=== PATIENT | female | born 1985 | race Caucasian/White ===

== ENCOUNTER 2023-07-13 09:46 | Emergency (ER) | payer OTHER, SELFPAY ==
[2023-07-13 09:59] VITALS: BP 133/76
[2023-07-13 10:26] LABS: Urine Albumin Trace (Neg - Trace); Urine Bilirubin 1+ (Negative); Urine Character Clear (Clear); Urine Color Yellow; Urine Glucose Negative (Negative); Urine Ketone 3+ (Negative); Urine Leukocyte Negative (Negative); Urine Nitrite Negative (Negative); Urine Occult Blood 3+ (Negative); Urine Urobilinogen Negative (Neg - 1+)
[2023-07-13 10:41] LABS: Urine Bacteria Few (Negative); Urine Squamous Cell 16-20 /LPF (Few); Urine White Cell 0-2 /HPF (0-5)
[2023-07-13 11:14] VITALS: BMI 22.5
[2023-07-13 11:15] VITALS: BP 115/75
--- NOTE | 2023-07-13 11:22 | ED.GENMED ---
History of Present Illness
General
Chief Complaint: Abdominal Pain
Time Seen by Provider: 07/13/23 11:01
Travel History
Have you had any contact with someone who has COVID-19?: No
Do you have any symptoms of coronavirus? Fever > 100 degrees, chills, cough, shortness of breath, sore throat, loss of taste or smell, muscle aches, or headache?: No
History of Present Illness
History of Present Illness:
37-year-old female presents to the emergency department for evaluation of left-sided lower abdominal pain gradually worsening over the past 2 days. Pain is colicky in nature, currently rated 6 out of 10. Also reporting low back pain and low-grade
fever this morning. Does report nausea with no vomiting, did have an episode of diarrhea this morning. No lower urinary tract voiding symptoms. No history of intra-abdominal surgeries.
Review of Systems
Review of Systems
Allergies reviewed?: Yes
All Other Systems: ROS reviewed and negative except as documented in HPI and ROS
Phy Exam
Physical Exam
Physical Exam:
GEN: Well appearing, NAD, WDWN
Eyes: PERRLA, EOMs intact, no scleral icterus
HENT: NCAT, oral mucosa moist
Lungs: CTAB, no wheezes, rales, rhonchi, normal chest wall excursion
Cardiac: RRR, no M/R/G, no peripheral edema. Radial pulses 2+ bilat
Abdomen: Soft, no rigidity, moderate tenderness to the suprapubic region and left lower quadrant
Neuro: AO x 3
MSK: No gross deformity or ecchymosis. No edema. No digital clubbing
Skin: No rashes, petechiae. Normal color, no pallor or jaundice.
Psych: Calm, cooperative, proper hygiene
Course
Orders/Labs/Results
Orders:
Orders
07/13/23 10:16
Urinalysis Reflex To Culture Urgent
Date Specimen was Collected: 07/13/23
Time Specimen was Collected: 10:09
Urine Microscopic Reflex Cult Urgent
07/13/23 11:22
CT Abd/Pel (IV only)-DH only Urgent
Comment:
Reason For Exam: LLQ pain
Ketorolac [Toradol] 15 mg IV NOW STA
Test Result ONCE
07/13/23 11:39
Complete Blood Count/With Diff Urgent
Comprehensive Metabolic Panel Urgent
HCG, Serum Qualitative Screen Urgent
Abnormal Lab Results
07/13/23 07/13/23
10:16 11:39
RBC 4.04 L 10^6/uL
(4.20-5.40)
Hct 36.0 L %
(37.0-47.0)
MCH 31.7 H pg
(27.0-31.0)
MPV 10.5 H fL
(7.4-10.4)
Abs Immat Gran (auto) 0.1 H 10^3/uL
(0-0.05)
Absolute Neuts (auto) 7.9 H 10^3/uL
(1.4-6.5)
Neutrophils % 80.5 H %
(42.2-75.2)
Lymphocytes % 12.2 L %
(20.5-51.1)
Carbon Dioxide 21 L mmol/L
(22-30)
Urine Ketones 3+ A
(Negative)
Ur Occult Blood Reflex 3+ A
(Negative)
Urine Bilirubin 1+ A
(Negative)
Urine RBC 7-10 A /HPF
(0-2)
Urine Bacteria (Reflex) Few A
(Negative)
07/13/23 11:39
07/13/23 11:39
Vital Signs
Initial and Last Documented VS:
Initial Vital Signs
Temp Pulse BP Pulse Ox
100.1 F 84 133/76 99
07/13/23 09:59 07/13/23 09:59 07/13/23 09:59 07/13/23 09:59
Last Documented Vital Signs
Temp Pulse Resp BP Pulse Ox
100.1 F 70 18 103/75 100
07/13/23 09:59 07/13/23 13:22 07/13/23 13:22 07/13/23 13:22 07/13/23 13:22
MDM/Problems Addressed
MDM/Problems Addressed:
CT scan suggested diverticulitis. Urinalysis negative for UTI and clinical presentation is not concerning for appendicitis or acute surgical bowel pathology. Will start the patient on Augmentin and recommend strict clear liquid diet, recommend
outpatient GI follow-up. Counseled on high-fiber diet post completion of antibiotics and ED return parameters
*Critical Care Note
Total Time (30-74mins, 75-104mins- exclusive of procedures): Not Applicable
ED Attending Note
-
Portions of this chart may have been created with voice recognition software.� Occasional wrong word or��sound alike� substitutions may have occurred due to the inherent limitations of voice recognition software.
Discharge Plan
Departure
Patient Disposition: Home (Routine Discharge)
Date of Disposition: 07/13/23
Time of Disposition: 13:10
Patient with high blood pressure during this ER visit?: No
Discharge Problem:
Acute diverticulitis
Instructions: Clear Liquid Diet, Diverticulitis (DC)
Prescriptions:
New
amoxicillin-pot clavulanate 875-125 mg tablet
1 tab PO BID 10 Days Qty: 20 0RF
Referrals:
Kenia Lopez MD [Active] -
Malcolm Newell DO [Family Provider] -
Interventions
Interventions:
*Risk Screen - Suicide Last Done: 07/13/23 11:14
*General Assessment Last Done: 07/13/23 11:14
*Neglect/Abuse Screening Last Done: 07/13/23 11:14
ED- Fall Risk Assessment Last Done: 07/13/23 11:14
*Nursing Disposition Last Done: 07/13/23 13:23
YK-Xomvhb-Vzzffrmbcj Assessment Last Done: 07/13/23 11:14
Discharge Date and Time
Discharge Date/Time: 07/13/23 13:23
Print Language: OCCITAN
[2023-07-13] MEDS: TORADOL 15 MG IV (11:40)
[2023-07-13 12:02] LABS: HCG, Serum Qualitative Screen Negative
[2023-07-13 12:08] LABS: ALT (SGPT) 11 U/L (0-35); AST (SGOT) 22 U/L (14-36); Albumin 4.4 g/dl (3.5-5.0); Alkaline Phosphatase 69 U/L (38-126); Blood Urea Nitrogen 8 mg/dl (7-17); Calcium 9.5 mg/dl (8.4-10.2); Carbon Dioxide 21 mmol/L (22-30); Chloride 104 mmol/L (98-107); Estimated Creatinine Clearance 109 ml/min; Glucose 92 mg/dl (70-99); Potassium 3.6 mmol/L (3.5-5.1); Sodium 137 mmol/L (135-145); Total Bilirubin 0.8 mg/dl (0.2-1.3); Total Protein 7.1 g/dl (6.3-8.2); eGFR > 60.00
[2023-07-13 12:20] LABS: % Basophils 0.3 % (0-2); % Eosinophils 0.5 % (0-6); % Immature Granulocytes 0.5 % (0-0.5); % Lymphocytes 12.2 % (20.5-51.1); % Neutrophils 80.5 % (42.2-75.2); Absolute Eosinophils 0.1 10^3/uL (0-0.7); Absolute Immature Granulocytes 0.1 10^3/uL (0-0.05); Absolute Lymphocytes 1.2 10^3/uL (1.2-3.4); Absolute Monocytes 0.6 10^3/uL (0.1-0.6); Absolute Neutrophils 7.9 10^3/uL (1.4-6.5); Hemoglobin 12.8 g/dL (12.0-16.0); Mean Corp Hgb Conc. 35.6 g/dL (33.0-37.0); Mean Corpuscular Hgb 31.7 pg (27.0-31.0); Mean Corpuscular Volume 89.1 fL (81.0-99.0); Mean Platelet Volume 10.5 fL (7.4-10.4); Nucleated Red Blood Cells % 0 %; Platelet Count 200 10^3/uL (130-400); Red Blood Cell Count 4.04 10^6/uL (4.20-5.40); White Blood Cell Count 9.8 10^3/uL (4.8-10.8)
[2023-07-13 13:22] VITALS: BP 103/75
== END 2023-07-13 13:23 | disposition home or self-care (01) ==
LOC: EMR 09:46
PROVIDERS: Emergency Medicine; Physician Assistant; EMERGENCY PHYSICIAN Emergency Medicine; FAMILY PHYSICIAN Internal Medicine
DX: K57.32 Diverticulitis of large intestine without perforation or abscess without bleeding (principal); Z71.3 Dietary counseling and surveillance
CPT/HCPCS: 99284; 96374; 74177; 80053; 81003; 81015; 84703; 85025; Q9967